=== PATIENT | male | born 1950 | race Two or more races ===

== ENCOUNTER 2019-08-24 18:18 | Emergency (ER) | payer MEDICARE, MEDICAID ==
[~2019-08-24] VITALS: Ht 170.2 cm; Wt 77.1 kg
[2019-08-24] MEDS ORDERED: hydrALAZINE HCL 20 MG/ML VL IV ONE (18:45)
[2019-08-24 18:55] LABS: Basophils # (auto) 0 uL; Basophils % (auto) 0.9 % (0.0-2.0); Eosinophils # (auto) 0.1 uL; Eosinophils % (auto) 2.7 % (0.0-7.0); Hematocrit 33.5 % (41.0-53.0); Hemoglobin 11.5 g/dL (13.5-17.5); Lymphocytes % (auto) 18.2 % (10.0-50.0); Mean Corpuscular Hemoglobin 33.2 pg (28.0-32.0); Mean Corpuscular Hgb Conc. 34.3 g/dL (32.0-36.0); Mean Corpuscular Volume 96.7 fL (80.0-100.0); Monocytes # (auto) 0.6 uL; Monocytes % (auto) 10.7 % (0.0-12.0); Neutrophils # (auto) 3.7 uL; Neutrophils % (auto) 67.5 % (37.0-80.0); Platelet Count (auto) 175 10^3/uL (140-450); Red Blood Cells 3.46 10^6/uL (4.5-5.90); Red Cell Distribution Width 14.7 % (11.8-14.3); White Blood Cell 5.4 10^3/uL (4.4-10.8)
[2019-08-24 19:11] LABS: Albumin 3.3 g/dL (3.4-5.0); Potassium 4.4 mmol/L (3.5-5.1)
[2019-08-24 19:13] LABS: BUN/Creatinine Ratio 3.6
[2019-08-24 19:18] LABS: Bilirubin, Total 0.6 mg/dL (0.2-1.0)
[2019-08-24 19:51] VITALS: BP 162/67
== END 2019-08-24 20:57 | disposition left against medical advice (07) ==
LOC: EDBD 18:18 → ER 18:20 → EDSEX 18:20 → ER 20:57
DX: I10 Essential (primary) hypertension (principal); Z53.21 Procedure and treatment not carried out due to patient leaving prior to being seen by health care provider
CPT/HCPCS: 36415; 70450; 80053; 84484; 85025; J0360